=== PATIENT | female | born 1935 | race Caucasian/White ===

== ENCOUNTER 2016-10-09 08:57 | Outpatient (CLI) | payer MEDICARE | END 2016-10-09 08:58 | disposition home or self-care (01) | DX: Z79.899 Other long term (current) drug therapy (principal); M06.00 Rheumatoid arthritis without rheumatoid factor, unspecified site ==

== ENCOUNTER 2017-04-01 08:51 | Outpatient (CLI) | payer MEDICARE ==
[2017-04-01 13:32] LABS: BASOPHILS % (AUTO) 0.5 %; EOSINOPHILS # (AUTO) 0.2 10^3/uL (0.0-0.7); EOSINOPHILS % (AUTO) 2.4 %; HCT - HEMATOCRIT 38.3 % (37.0-47.0); HGB - HEMOGLOBIN 13.1 g/dL (12.0-16.0); LYMPHOCYTES # (AUTO) 1.7 10^3/uL (1.5-3.5); LYMPHOCYTES % (AUTO) 24.3 %; MEAN CORPUSCULAR HGB CONC 34.1 g/dL (32.0-36.0); MEAN CORPUSCULAR VOLUME 96.8 fL (81.0-99.0); MEAN PLATELET VOLUME 8.9 fL (7.9-10.8); MONOCYTES # (AUTO) 0.5 10^3/uL (0.0-1.0); NEUTROPHILS # (AUTO) 4.5 10^3/uL (1.5-6.6); NEUTROPHILS % (AUTO) 65.8 %; RED BLOOD COUNT 3.96 10^6/uL (4.20-5.40); RED CELL DISTRIBUTION WIDTH 12.8 % (12.0-15.0); UNCORRECTED WHITE BLOOD COUNT 6.9 x10^3/uL; WHITE BLOOD COUNT 6.9 x10^3/uL (4.8-10.8)
[2017-04-01 13:56] LABS: ALBUMIN/GLOBULIN RATIO 1.6 (1.0-2.2); BILIRUBIN,TOTAL 0.7 mg/dL (0.2-1.0); BUN - BLOOD UREA NITROGEN 18 mg/dL (6-20); CALCIUM 9.1 mg/dL (8.5-10.3); CARBON DIOXIDE - CO2 29 mmol/L (21-32); CHLORIDE 100 mmol/L (101-111); CHOL/HDL RATIO 3.7 (<4.4); CHOLESTEROL 167 mg/dL; CREATININE 1.1 mg/dL (0.4-1.0); GFR - MDRD 48 (>89); GLUCOSE 91 mg/dL (70-100); HDL CHOLESTEROL 45 mg/dL; LDL/HDL RATIO 2.1 (<4.4); POTASSIUM 3.9 mmol/L (3.5-5.0); SODIUM 138 mmol/L (135-145); TRIGLYCERIDES 129 mg/dL; VLDL CHOLESTEROL 26 mg/dL
== END 2017-04-01 08:52 | disposition home or self-care (01) ==
LOC: LAB.F 08:51
PROVIDERS: ATTEND Physician Assistant Medical
DX: M81.0 Age-related osteoporosis without current pathological fracture (principal); M06.09 Rheumatoid arthritis without rheumatoid factor, multiple sites; E78.2 Mixed hyperlipidemia; I10 Essential (primary) hypertension; Z79.899 Other long term (current) drug therapy
CPT/HCPCS: 36415; 80053; 80061; 82306; 84443; 85025; 85651; 86140

== ENCOUNTER 2017-04-08 07:10 | Outpatient (CLI) | payer MEDICARE ==
--- NOTE | 2017-04-09 16:10 | Mammography Report ---
DIGITAL SCREENING MAMMOGRAM: 04/08/2017 CLINICAL INDICATION: A 81-year-old with personal history of right breast cancer status post lumpecto my and chemoradiation. COMPARISON: 03/2016, 03/2015, 03/2014, 03/2013, 03/2012, 03/2011, 03/2010 TECHNIQUE: Routine CC and MLO projections were obtained of the breasts. FINDINGS: The breasts demonstrate scattered fibroglandular densities bilaterally. Postoperative and post-treatment changes in the right breast are stable. Coarse and punctate, typically benign calcif ications are present. No suspicious masses, clustered microcalcifications, or regions of architectur al distortion are identified. IMPRESSION: BENIGN FINDINGS. RECOMMENDATION: Routine annual screening unless otherwise clinically indicated. BIRADS CATEGORY 2 - BENIGN FINDINGS. STANDARD QUALIFYING STATEMENTS 1. This examination was reviewed with the aid of Computer-Aided Detection (CAD). 2. A negative or benign imaging report should not delay biopsy if clinically suspicious findings are present. Consider surgical consultation if warranted. More than 5% of cancers are not identified by i maging. 3. Dense breasts may obscure an underlying neoplasm. JOB #: [id number] EXT JOB #:[id number]
== END 2017-04-08 07:11 | disposition home or self-care (01) ==
LOC: DI 07:10
PROVIDERS: ATTEND Physician Assistant Medical
DX: Z12.31 Encounter for screening mammogram for malignant neoplasm of breast (principal); Z85.3 Personal history of malignant neoplasm of breast
CPT/HCPCS: 77067

== ENCOUNTER 2017-09-30 11:17 | Outpatient (CLI) | payer MEDICARE ==
[2017-09-30 11:33] LABS: BASOPHILS % (AUTO) 0.4 %; EOSINOPHILS # (AUTO) 0.1 10^3/uL (0.0-0.7); EOSINOPHILS % (AUTO) 0.8 %; HGB - HEMOGLOBIN 12.7 g/dL (12.0-16.0); LYMPHOCYTES # (AUTO) 1.4 10^3/uL (1.5-3.5); LYMPHOCYTES % (AUTO) 17.3 %; MEAN CORPUSCULAR HGB CONC 33.9 g/dL (32.0-36.0); MEAN CORPUSCULAR VOLUME 97.2 fL (81.0-99.0); MEAN PLATELET VOLUME 7.7 fL (7.9-10.8); MONOCYTES # (AUTO) 0.6 10^3/uL (0.0-1.0); MONOCYTES % (AUTO) 6.8 %; NEUTROPHILS # (AUTO) 6.1 10^3/uL (1.5-6.6); NEUTROPHILS % (AUTO) 74.7 %; PLT - PLATELET COUNT 181 10^3/uL (130-450); RED BLOOD COUNT 3.85 10^6/uL (4.20-5.40); RED CELL DISTRIBUTION WIDTH 13.8 % (12.0-15.0); WHITE BLOOD COUNT 8.2 x10^3/uL (4.8-10.8)
[2017-09-30 12:14] LABS: ALBUMIN 4.3 g/dL (3.2-5.5); ALBUMIN/GLOBULIN RATIO 1.4 (1.0-2.2); BILIRUBIN,TOTAL 0.8 mg/dL (0.2-1.0); CALCIUM 9.2 mg/dL (8.5-10.3); TOTAL PROTEIN 7.3 g/dL (6.7-8.2)
== END 2017-09-30 11:18 | disposition home or self-care (01) ==
LOC: LAB 11:17
PROVIDERS: ATTEND Physician Assistant Medical
DX: R06.00 Dyspnea, unspecified (principal); R53.83 Other fatigue
CPT/HCPCS: 36415; 80053; 85025; 85379

== ENCOUNTER 2017-09-30 11:34 | Outpatient (CLI) | payer MEDICARE ==
--- NOTE | 2017-09-30 12:03 | XRAY Report ---
TWO VIEW CHEST: 09/30/2017 CLINICAL INDICATION: Dyspnea, fatigue, History of pneumonia. COMPARISON: 11/15/2009. FINDINGS: Frontal and lateral views of the chest demonstrate a normal cardiac silhouette. The lungs are clear. Postoperative changes in the right breast and axilla are stable. No effusion or pneumothorax is present. IMPRESSION: NORMAL CHEST, UNCHANGED. TD: 09/30/2017 12:02
== END 2017-09-30 11:35 | disposition home or self-care (01) ==
LOC: DI 11:34
PROVIDERS: ATTEND Physician Assistant Medical
DX: R06.00 Dyspnea, unspecified (principal); R53.83 Other fatigue
CPT/HCPCS: 36415; 71046; 80053; 85025; 85379

== ENCOUNTER 2017-10-20 14:34 | Outpatient (CLI) | payer MEDICARE | END 2017-10-20 14:35 | disposition home or self-care (01) | LOC: RT 14:34 | PROVIDERS: ATTEND Physician Assistant Medical | DX: R06.00 Dyspnea, unspecified (principal); R53.83 Other fatigue | CPT/HCPCS: 93005; 94010 ==

== ENCOUNTER 2017-10-29 08:34 | Outpatient (CLI) | payer MEDICARE ==
--- NOTE | 2017-10-29 12:38 | CARDIAC PROCEDURE NOTE ---
DATE OF SERVICE: 10/29/2017 Physician: YUAN Brooks PRIMARY CARE PHYSICIAN: Sydnie Ray PA-C PROCEDURE: Myocardial perfusion treadmill. PROCEDURE SYMPTOMS: Fatigue, dyspnea on exertion. CARDIAC RISK FACTORS INCLUDE: Age, hypertension, hyperlipidemia. PREVIOUS CARDIAC PROCEDURES: ETT and MPS. CURRENT SYMPTOMATOLOGY: Okay. CLINICAL HISTORY: An 82-year-old sedentary female without known coronary artery disease. INITIAL RESTING VITAL SIGNS: BP 116/62, heart rate 85, height 66 inches, weight 166 pounds, BMI 26.75. PROCEDURE AND FINDINGS: Patient identity and date verified, consent signed. The patient performed treadmill exercise using a Marbin protocol, completing 5 minutes 26 seconds, and completing an estimated workload of 7.05 metabolic equivalents. At peak exercise, Cardiolite radioactive tracer was injected intravenously. Maximal blood pressure was 166/56 with a heart rate of 132 beats per minute or 94% of maximum predicted heart rate for age. The blood pressure response to exercise was within normal limits. The patient stopped because her legs were tiring and she was getting breathless. The resting ECG demonstrated normal sinus rhythm with no abnormality. Maximal ST segment depression was less than 0.5 mm and upsloping. There was a rare PAC. FINAL IMPRESSIONS 1. Good quality test. 2. Negative stress electrocardiogram for ischemia by electrocardiographic criteria. 3. Negative stress test clinically for angina. 4. No arrhythmias. 5. Outperformed predicted exercise time of 3 minutes 35 seconds to 4 minutes 50 seconds. TD: 10/29/2017 12:07
--- NOTE | 2017-10-30 08:22 | Nuclear Medicine Report ---
EXAM: SINGLE-ISOTOPE EXERCISE STRESS TEST. SINGLE-ISOTOPE AND ONE-DAY REST/STRESS MYOCARDIAL PERFUSION SCAN S WITH TOMOGRAPHIC IMAGING, QUANTITATIVE ANALYSIS, WALL MOTION ANALYSIS AND CALCULATION OF EJECTION F RACTION. EXAM DATE: 10/29/2017 04:40 PM. CLINICAL HISTORY: DYSPNEA, FATIGUE, HTN. COMPARISON: None available. TECHNIQUE: A rest myocardial perfusion scan was done with tomography after the intravenous administration of 9.3 mCi Tc-99m sestamibi. After an appropriate delay, a treadmill exercise stress was performed according to department protoco l. The patient exercised for 5 minutes and 26 seconds. The maximum heart rate was 132 bpm, which was 94% of the maximum predicted heart rate of 140 bpm. At approximately peak heart rate, 45.1 mCi of Tc- 99m sestamibi was injected for stress myocardial perfusion scan. Motion correction was applied when a ppropriate. Gated tomographic images were obtained for wall motion analysis and computation of left ventricular e jection fraction. FINDINGS: Images show a small, mild, fixed apical defect. No other convincing fixed or reversible per fusion defects. Wall motion analysis demonstrates no focal wall motion abnormality The left ventricular end-diastolic volume is 55 cc. The left ventricular end-systolic volume is 19 cc . The left ventricular ejection fraction is calculated to be 65%. IMPRESSION: 1. Small, mild, fixed apical perfusion defect. No other convincing fixed or reversible perfusion defe cts. 2. Normal left ventricular ejection fraction of 65%. 3. Normal segmental and global wall motion. 4. Normal left ventricular cavity size, no change with stress. [facility] Referring Provider Line: [phone] SITE ID: [id number]
[2017-11-02 17:10] VITALS: BP 110/65
== END 2017-10-29 08:35 | disposition home or self-care (01) ==
LOC: DI 08:34
PROVIDERS: ATTEND Physician Assistant Medical
DX: I99.8 Other disorder of circulatory system (principal); R06.00 Dyspnea, unspecified; R53.83 Other fatigue; E78.2 Mixed hyperlipidemia; I10 Essential (primary) hypertension
CPT/HCPCS: 78452; 93017; A9500; 93016; 93018

== ENCOUNTER 2018-03-17 13:23 | Outpatient (CLI) | payer MEDICARE | END 2018-03-17 13:24 | disposition short-term general hospital (02) | LOC: EMS 13:23 | PROVIDERS: ATTEND Surgery | DX: R07.9 Chest pain, unspecified (principal) | CPT/HCPCS: A0170; A0425; A0427 ==

== ENCOUNTER 2018-03-29 10:02 | Outpatient (CLI) | payer MEDICARE ==
[2018-03-29 17:52] LABS: BASOPHILS % (AUTO) 0.4 %; EOSINOPHILS # (AUTO) 0.1 10^3/uL (0.0-0.7); EOSINOPHILS % (AUTO) 1.8 %; HGB - HEMOGLOBIN 13.4 g/dL (12.0-16.0); LYMPHOCYTES # (AUTO) 1.9 10^3/uL (1.5-3.5); LYMPHOCYTES % (AUTO) 34.4 %; MEAN CORPUSCULAR HEMOGLOBIN 33.6 pg (27.0-31.0); MEAN CORPUSCULAR VOLUME 98.8 fL (81.0-99.0); MONOCYTES # (AUTO) 0.5 10^3/uL (0.0-1.0); MONOCYTES % (AUTO) 8.2 %; NEUTROPHILS # (AUTO) 3.1 10^3/uL (1.5-6.6); NEUTROPHILS % (AUTO) 55.2 %; PLT - PLATELET COUNT 167 10^3/uL (130-450); RED BLOOD COUNT 3.99 10^6/uL (4.20-5.40); WHITE BLOOD COUNT 5.7 x10^3/uL (4.8-10.8)
[2018-03-29 18:18] LABS: ALBUMIN 4.2 g/dL (3.2-5.5); ALBUMIN/GLOBULIN RATIO 1.7 (1.0-2.2); ALKALINE PHOSPHATASE 48 IU/L (42-121); ALT ALANINE AMINOTRANSFERASE 17 IU/L (10-60); AST ASPARTATE AMINOTRANSFERASE 22 IU/L (10-42); BUN - BLOOD UREA NITROGEN 21 mg/dL (6-20); CALCIUM 9.1 mg/dL (8.5-10.3); CARBON DIOXIDE - CO2 33 mmol/L (21-32); CHLORIDE 98 mmol/L (101-111); CHOL/HDL RATIO 3.9 (<4.4); CHOLESTEROL 171 mg/dL; GFR - MDRD 53 (>89); GLUCOSE 81 mg/dL (70-100); HDL CHOLESTEROL 44 mg/dL; LDL CHOLESTEROL,CALCULATED 98 mg/dL; LDL/HDL RATIO 2.2 (<4.4); SODIUM 139 mmol/L (135-145); TOTAL PROTEIN 6.7 g/dL (6.7-8.2); VLDL CHOLESTEROL 29 mg/dL
== END 2018-03-29 10:03 | disposition home or self-care (01) ==
LOC: LAB.F 10:02
PROVIDERS: ATTEND Physician Assistant Medical
DX: E78.2 Mixed hyperlipidemia (principal); I10 Essential (primary) hypertension; M81.0 Age-related osteoporosis without current pathological fracture; Z79.899 Other long term (current) drug therapy; R53.83 Other fatigue
CPT/HCPCS: 36415; 80053; 80061; 82306; 83721; 84443; 85025

== ENCOUNTER 2019-01-06 07:46 | Outpatient (CLI) | payer MEDICARE ==
--- NOTE | 2019-01-07 08:15 | Mammography Report ---
Reason: MAMMOGRAM YEARLY SCREENING Procedure Date: 01/06/2019 Accession Number: [id number] / [id number] Procedure: FINN - Screening Mammo w/Blas CPT Code: FULL RESULT: EXAM: Screening Mammo w/Blas DATE: 01/06/2019 8:57 AM CLINICAL HISTORY: Screening encounter. Personal history of right breast cancer status post lumpectomy in 2003 with chemoradiation. TECHNIQUE: (B) - Bilateral CC and MLO views were obtained. A right laterally exaggerated cc view is obtained. COMPARISON: 04/08/2017 through 03/23/2014. PARENCHYMAL PATTERN: (A) - The breast(s) demonstrate(s) scattered fibroglandular densities. FINDINGS: Posttreatment changes in the right breast are stable. There are bilateral typically benign coarse calcifications and typically benign vascular calcifications. There are no suspicious masses, calcifications, or areas of distortion. IMPRESSION: Benign findings. BI-RADS category 2. RECOMMENDATION: (ANNUAL) - Recommend routine annual screening mammography. BI-RADS CATEGORY: (2) - Benign Findings. STANDARD QUALIFYING STATEMENTS: 1. This examination was not reviewed with the aid of Computer-Aided Detection (CAD). 2. A negative or benign imaging report should not preclude biopsy if clinically suspicious findings are present. 3. Dense breasts may obscure an underlying neoplasm. 4. This examination was reviewed with the aid of 3D breast imaging (tomosynthesis).
== END 2019-01-06 07:47 | disposition home or self-care (01) ==
LOC: DI 07:46
PROVIDERS: ATTEND Nurse Practitioner
DX: Z12.31 Encounter for screening mammogram for malignant neoplasm of breast (principal); Z08 Encounter for follow-up examination after completed treatment for malignant neoplasm; Z85.3 Personal history of malignant neoplasm of breast
CPT/HCPCS: 77063; 77067

== ENCOUNTER 2019-01-06 07:48 | Outpatient (CLI) | payer MEDICARE ==
--- NOTE | 2019-01-07 08:55 | DEXA Report ---
Reason: MENOPAUSAL STATE,STEROID USE,SENIOR LIVING Procedure Date: 01/06/2019 Accession Number: [id number] / [id number] Procedure: DEX - Dexa Spine and/or Hip CPT Code: FULL RESULT: EXAM: Dexa Spine and/or Hip DATE: 01/06/2019 9:26 AM CLINICAL HISTORY: MENOPAUSAL STATE,STEROID USE,SENIOR LIVING TECHNIQUE: Dual energy x-ray absorptiometry (DXA) was performed on a [employer]ent[employer] System. Regions measured are the AP Spine, femoral neck, and if needed forearm. COMPARISON: 04/11/2016. In accordance with the International Society for Clinical Densitometry (ISCD) guidelines, data from previous exams may be reanalyzed using current recommendations and techniques. This is done to allow a more accurate basis for comparison with the current study. FINDINGS: The data for the lumbar spine is as follows: BMD (g/cm/cm) T-SCORE Z-SCORE REGION L1 0.929 -1.7 -0.1 L2 1.142 -0.5 1.1 L3 1.198 0.0 1.6 L4 1.150 -0.4 1.2 TOTAL 1.108 -0.6 1.0 NOTE: All evaluable vertebrae are used for classification The data for the hip is as follows: BMD (g/cm/cm) T-SCORE Z-SCORE REGION Neck 0.884 -1.1 0.9 TOTAL 0.882 -1.0 0.9 NOTE: The femoral neck or total proximal femur, whichever is lowest, is used for classification. DXA RESULTS SUMMARY: Spine SCAN DATE AGE BMD CHANGE VS CHANGE VS PREVIOUS PREVIOUS % [birth year]2019 [age] 1.108 -0.026 -2.3 04/11/2016 [age] 1.134 * Denotes significant change at the 95% confidence level. Denotes dissimilar scan types or analysis methods. DXA RESULTS SUMMARY: Hip SCAN DATE AGE BMD CHANGE VS CHANGE VS PREVIOUS PREVIOUS % [birth year]2019 [age] 0.882 -0.075* -7.8* 04/11/2016 [age] 0.957 * Denotes significant change at the 95% confidence level. Denotes dissimilar scan types or analysis methods. IMPRESSION: THE WHO CLASSIFICATION BASED ON THE INTERNATIONAL REFERENCE STANDARD IS OSTEOPENIA. THE FRACTURE RISK IS INCREASED. RECOMMENDATION: Patients with diagnosis of osteoporosis or osteopenia should have regular bone mineral density assessment. For those eligible for Medicare, routine testing is allowed once every 2 years. Testing frequency can be increased for patients who have rapidly progressing disease or for those who are receiving medical therapy to restore bone mass. COMMENT: World Health Organization (WHO) definitions for osteoporosis and osteopenia: NORMAL BMD: T-score at -1.0 or higher, fracture risk is low OSTEOPENIA BMD: T-score between -1.0 and -2.5, fracture risk is increased. OSTEOPOROSIS BMD: T-score at -2.5 or lower, fracture risk is high. National Osteoporosis Foundation recommends: 1. Obtain adequate dietary calcium (at least 1200 mg per day) and vitamin D (400-800 international units per day). 2. Participate, as appropriate, in regular weightbearing and muscle-strengthening exercise. 3. Avoid tobacco use and reduce alcohol and caffeine intake. 4. For more detailed information see the website at www.NOF.org.
== END 2019-01-06 07:49 | disposition home or self-care (01) ==
LOC: DI 07:48
PROVIDERS: ATTEND Nurse Practitioner
DX: M85.89 Other specified disorders of bone density and structure, multiple sites (principal); Z78.0 Asymptomatic menopausal state; Z79.52 Long term (current) use of systemic steroids
CPT/HCPCS: 77080

== ENCOUNTER 2019-11-16 18:31 | Outpatient (CLI) | payer MEDICARE | END 2019-11-16 23:59 | disposition critical access hospital (66) | LOC: EMS 18:31 | PROVIDERS: ATTEND Surgery | DX: R00.0 Tachycardia, unspecified (principal); R07.9 Chest pain, unspecified; R42 Dizziness and giddiness; R61 Generalized hyperhidrosis | CPT/HCPCS: A0425; A0429 ==

== ENCOUNTER 2020-03-01 07:53 | Outpatient (CLI) | payer MEDICARE ==
[2020-03-01 15:26] LABS: BASOPHILS % (AUTO) 0.4 %; EOSINOPHILS % (AUTO) 2.6 %; HGB - HEMOGLOBIN 12.7 g/dL (12.0-16.0); MEAN CORPUSCULAR HEMOGLOBIN 35.2 pg (27.0-31.0); MEAN CORPUSCULAR HGB CONC 33.1 g/dL (32.0-36.0); MEAN CORPUSCULAR VOLUME 106.4 fL (81.0-99.0); MEAN PLATELET VOLUME 10.4 fL (7.9-10.8); MONOCYTES % (AUTO) 7.3 %; NEUTROPHILS % (AUTO) 63.2 %; PLT - PLATELET COUNT 184 10^3/uL (130-450); RED BLOOD COUNT 3.61 10^6/uL (4.20-5.40); RED CELL DISTRIBUTION WIDTH 15.2 % (12.0-15.0); WHITE BLOOD COUNT 7.7 x10^3/uL (4.8-10.8)
[2020-03-01 15:57] LABS: ALBUMIN/GLOBULIN RATIO 1.5 (1.0-2.2); ALKALINE PHOSPHATASE 42 IU/L (42-121); ALT ALANINE AMINOTRANSFERASE 19 IU/L (10-60); AST ASPARTATE AMINOTRANSFERASE 22 IU/L (10-42); BILIRUBIN,TOTAL 0.6 mg/dL (0.2-1.0); BUN - BLOOD UREA NITROGEN 17 mg/dL (6-20); CALCIUM 9.4 mg/dL (8.5-10.3); CARBON DIOXIDE - CO2 32 mmol/L (21-32); CHLORIDE 99 mmol/L (101-111); CHOL/HDL RATIO 4.1 (<4.4); CHOLESTEROL 185 mg/dL; GLUCOSE 85 mg/dL (70-100); HDL CHOLESTEROL 45 mg/dL; LDL CHOLESTEROL,CALCULATED 112 mg/dL; LDL/HDL RATIO 2.5 (<4.4); SODIUM 139 mmol/L (135-145); TOTAL PROTEIN 6.7 g/dL (6.7-8.2); VLDL CHOLESTEROL 28 mg/dL
[2020-03-01 16:02] LABS: ABNORMAL LYMPHS % (MANUAL) 0 %; BAND NEUTROPHILS % (MANUAL) 0 %; THYROID STIMULATING HORMONE 3.11 uIU/mL (0.34-5.60)
[2020-03-01 16:35] LABS: DIFFERENTIAL COMMENT MANUAL DIFFERENTIAL; LYMPHOCYTES # (MANUAL) 1.9 10^3/uL (1.5-3.5); LYMPHOCYTES % (MANUAL) 25 %; MONOCYTES # (MANUAL) 0.5 10^3/uL (0.0-1.0); PLATELET ESTIMATE, MANUAL NORMAL (130-450,000) (NORMAL); PLATELET MORPHOLOGY NORMAL APPEARANCE (NORMAL)
== END 2020-03-01 07:54 | disposition home or self-care (01) ==
LOC: LAB.S 07:53
PROVIDERS: ATTEND Family Medicine
DX: M06.9 Rheumatoid arthritis, unspecified (principal); E78.5 Hyperlipidemia, unspecified; E83.52 Hypercalcemia; M62.81 Muscle weakness (generalized)
CPT/HCPCS: 36415; 80053; 80061; 83721; 83970; 84443; 85025

== ENCOUNTER 2020-04-25 09:21 | Outpatient (CLI) | payer MEDICARE | END 2020-04-25 09:22 | disposition critical access hospital (66) | LOC: EMS 09:21 | PROVIDERS: ATTEND Surgery | DX: R53.83 Other fatigue (principal); R06.09 Other forms of dyspnea; R42 Dizziness and giddiness | CPT/HCPCS: A0425; A0427 ==

== ENCOUNTER 2020-04-25 09:57 | Emergency (ER) | payer MEDICARE ==
--- NOTE | 2020-04-25 10:05 | ED Physician Documentation ---
History of Present Illness - Stated complaint Stated Complaint: SOA - History obtained from History obtained from: Patient - Additonal information Additional information: This is a very healthy 85-year-old woman who presents with shortness of breath. She says has been present for the last 2 to 3 weeks or so but particularly bad over the last few days. She mostly notes it on exertion and with position changes especially when she goes upright. Its not associated with chest pain, cough, pedal edema, calf pain. She has a history of SVT status post ablation, no other heart issues. No history of DVT or PE. She is on methotrexate weekly for rheumatoid arthritis. She saw her doctor about a week ago for it, and it sounds like a event monitor or Holter monitor was placed without pertinent positive findings at this juncture but I am unable to confirm that. She had a stress test 4 years ago per the chart that was negative. Review of Systems Ten Systems: 10 systems reviewed and negative Constitutional: reports: Fatigue Cardiac: denies: Chest pain / pressure, Pedal edema, Calf pain Respiratory: reports: Dyspnea. denies: Cough GI: denies: Abdominal Pain PD PAST MEDICAL HISTORY - Past Medical History Cardiovascular: Hypertension, High cholesterol - Past Surgical History /MACHINE CUTTER: Other HEENT: Other - Present Medications Home Medications: Ambulatory Orders Medication Instructions Recorded Confirmed Calcium Carbonate [Caltrate 600] 1,200 mg PO DAILY 02/28/13 02/27/16 Lovastatin 10 mg PO DAILY 02/28/13 02/27/16 Multivit-Min/FA/Lycopene/Lut 1 each PO DAILY 02/28/13 02/27/16 [Centrum Silver Tablet] Omeprazole [PriLOSEC] 20 mg PO DAILY PRN 02/28/13 02/27/16 predniSONE [Deltasone] 3 mg PO DAILY 02/28/13 02/27/16 Hchloroquine 400 mg ORAL DAILY 03/01/14 02/27/16 Doxycycline Hyclate 100 mg PO BID #14 tablet. 04/25/20 predniSONE [Deltasone] 20 mg PO [id number] #21 tab 04/25/20 - Allergies Allergies/Adverse Reactions: Allergies Allergy/AdvReac Type Severity Reaction Status Date / Time Penicillins Allergy Rash Verified 04/25/20 10:10 Sulfa (Sulfonamide Allergy Rash Verified 04/25/20 10:10 Antibiotics) - Social History Does the pt smoke?: No - Family History Family history: reports: Non contributory PD ED PE NORMAL - Vitals Vital signs reviewed: Yes - General General: Alert and oriented X 3, No acute distress - HEENT HEENT: PERRL, EOMI - Neck Neck: Supple, no meningeal sign, No bony TTP - Cardiac Cardiac: No murmur, Other (Slightly tachycardic but regular without murmur) - Respiratory Respiratory: No respiratory distress, Other (Focal right middle lobe wheeze, nonlabored) - Abdomen Abdomen: Soft, Non tender - Back Back: No CVA TTP, No spinal TTP - Derm Derm: Normal color, Warm and dry - Extremities Extremities: No edema, No calf tenderness / cord - Neuro Neuro: Alert and oriented X 3, Normal speech Results - Vitals Vitals: Vital Signs - 24 hr 04/25/20 04/25/20 04/25/20 10:05 12:12 12:50 Temperature 36.0 C L Heart Rate 107 H 100 98 Respiratory 20 14 Rate Blood Pressure 136/87 H 126/61 O2 Saturation 97 100 99 04/25/20 13:00 Temperature Heart Rate 89 Respiratory 14 Rate Blood Pressure 126/61 O2 Saturation 100 Oxygen O2 Source Room air - EKG (time done) 1001 Rate: Rate (enter#) (98) Rhythm: NSR, LAE [place]: Normal Intervals: Normal MT QRS: LVH Ischemia: No: ST elevation c/w ischemia, ST depression Computer interpretation: Agree with computer - Labs Labs: Laboratory Tests 04/25/20 04/25/20 04/25/20 10:16 10:16 10:16 WBC 8.3 RBC 3.05 L Hgb 11.2 L Hct 33.3 L MCV 109.2 H MCH 36.7 H MCHC 33.6 RDW 15.4 H Plt Count 255 MPV 9.6 Neut # (Auto) 6.2 Lymph # (Auto) 0.8 L [place] # (Auto) 0.9 Eos # (Auto) 0.1 Baso # (Auto) 0.0 Absolute Nucleated RBC 0.00 Nucleated RBC % 0.0 D-Dimer 255.3 H Sodium 138 Potassium 3.6 Chloride 99 L Carbon Dioxide 27 Anion Gap 12.0 BUN 14 Creatinine 1.1 H Estimated GFR (MDRD) 47 L Glucose 105 H Calcium 8.9 Total Bilirubin 0.8 AST 75 H ALT 67 H Alkaline Phosphatase 46 Troponin I High Sens B-Natriuretic Peptide Total Protein 6.5 L Albumin 3.4 Globulin 3.1 Albumin/Globulin Ratio 1.1 04/25/20 04/25/20 10:16 10:16 WBC RBC Hgb Hct MCV MCH MCHC RDW Plt Count MPV Neut # (Auto) Lymph # (Auto) Daggett # (Auto) Eos # (Auto) Baso # (Auto) Absolute Nucleated RBC Nucleated RBC % D-Dimer Sodium Potassium Chloride Carbon Dioxide Anion Gap BUN Creatinine Estimated GFR (MDRD) Glucose Calcium Total Bilirubin AST ALT Alkaline Phosphatase Troponin I High Sens 7.6 B-Natriuretic Peptide 35 Total Protein Albumin Globulin Albumin/Globulin Ratio - Rads (name of study) 1v CXR Radiology: EMP read contemporaneously (NAD) PD MEDICAL DECISION MAKING - ED course ED course: 85-year-old woman presents with shortness of breath for several weeks, acutely worse over the last few days. It is worse on exertion and when she changes position. She was orthostatic for EMS prior to arrival. Initial work-up demonstrates no acute coronary syndrome or evidence of heart failure. Clear lungs on chest x-ray and exam. D-dimer was modestly elevated. She is persistently borderline hypoxic on room air, right around 90%. She was given some IV fluids and a CT of the chest was ordered. CT chest demonstrated a nonspecific pneumonitis, no PE. We walked her in the hallway on room air and she had no desaturations, looks well. She is discharged on antibiotics and steroids. Covid test is sent and pending. Departure - Departure Disposition: 01 Home, Self Care Clinical Impression: Bronchitis, Pneumonitis Condition: Good Record reviewed to determine appropriate education?: Yes Instructions: ED Upper Resp Infec Abx Tx Prescriptions: predniSONE [Deltasone] 20 mg PO [id number] #21 tab Doxycycline Hyclate 100 mg PO BID #14 tablet. Comments: You were seen today for shortness of breath, may be some dehydration. You felt better after IV fluids. There is no evidence of a heart issue. Your liver enzymes are mildly elevated, possibly due to the methotrexate, your AST is 75, ALT is 67. Your bilirubin is normal at 0.8. We did a CAT scan because your D- dimer was mildly positive and this showed a nonspecific pneumonitis. We are trying some antibiotics and steroids for this. Also checking a Covid test. If not better in short order, talk with your doctor at [facility] about potentially a pulmonology referral. Make sure to follow-up with your primary care physician regardless. You have a Covid test pending. You need to self quarantine until the result is done and negative. Do not leave your house. Do not get near anybody. The results should be done in 48 to 72 hours. We will call with a positive result, the fastest way to get a negative result for confirmation though is to go to the hospital website at [email or web address], click on the my [employer] tab and sign up for the patient portal. Discharge Date/Time: 04/25/20 13:00
--- NOTE | 2020-04-25 10:24 | XRAY Report ---
PROCEDURE: Chest 1 View X-Ray INDICATIONS: soa TECHNIQUE: 2 AP views of the chest was acquired. COMPARISON: Chest radiographs 09/30/2017 FINDINGS: Surgical changes and devices: Surgical clips are seen overlying the right breast and right axilla.. Lungs and pleura: No pleural effusions or pneumothorax. Lungs are clear. Mediastinum: Mediastinal contours appear normal. Heart size is normal. Mild atherosclerotic calcif ications are seen in the aorta. Bones and chest wall: No suspicious bony lesions. Overlying soft tissues appear unremarkable. IMPRESSION: No acute cardiopulmonary abnormality. Reviewed by: Rob Mahoney MD on 04/25/2020 10:23 AM [facility] Approved by: Rob Mahoney MD on 04/25/2020 10:23 AM PST Station ID: [id number]
[2020-04-25 10:30] LABS: BASOPHILS % (AUTO) 0.5 %; EOSINOPHILS # (AUTO) 0.1 10^3/uL (0.0-0.7); EOSINOPHILS % (AUTO) 1.5 %; HGB - HEMOGLOBIN 11.2 g/dL (12.0-16.0); LYMPHOCYTES # (AUTO) 0.8 10^3/uL (1.5-3.5); LYMPHOCYTES % (AUTO) 10.1 %; MEAN CORPUSCULAR HEMOGLOBIN 36.7 pg (27.0-31.0); MEAN CORPUSCULAR HGB CONC 33.6 g/dL (32.0-36.0); MEAN CORPUSCULAR VOLUME 109.2 fL (81.0-99.0); MEAN PLATELET VOLUME 9.6 fL (7.9-10.8); MONOCYTES # (AUTO) 0.9 10^3/uL (0.0-1.0); MONOCYTES % (AUTO) 10.8 %; NEUTROPHILS # (AUTO) 6.2 10^3/uL (1.5-6.6); NEUTROPHILS % (AUTO) 75.4 %; PLT - PLATELET COUNT 255 10^3/uL (130-450); RED BLOOD COUNT 3.05 10^6/uL (4.20-5.40); RED CELL DISTRIBUTION WIDTH 15.4 % (12.0-15.0); WHITE BLOOD COUNT 8.3 x10^3/uL (4.8-10.8)
[2020-04-25 10:34] LABS: ALBUMIN 3.4 g/dL (3.2-5.5); ALBUMIN/GLOBULIN RATIO 1.1 (1.0-2.2); BILIRUBIN,TOTAL 0.8 mg/dL (0.2-1.0); CALCIUM 8.9 mg/dL (8.5-10.3); CREATININE 1.1 mg/dL (0.4-1.0); TOTAL PROTEIN 6.5 g/dL (6.7-8.2)
[2020-04-25] MEDS ORDERED: IOVERSOL 320 100 ML VIAL IVP ONE ×2 (11:26→12:15)
[2020-04-25] MEDS ORDERED: SODIUM CHLORIDE 0.9% 1,000 ML IV STA (11:40)
--- NOTE | 2020-04-25 11:54 | CT Report ---
PROCEDURE: ANGIO CHEST W/WO INDICATIONS: dyspnea, pe protocol CONTRAST: IV CONTRAST: Optiray 320 ml: 80 PO CONTRAST: *NO PO CONTRAST TECHNIQUE: After the administration of intravenous contrast, 2 mm thick sections acquired from the pulmonary api dean to the posterior costophrenic angles. 3-dimensional maximum intensity projection (MIP) coronal a nd sagittal reformats were then acquired through the thorax. For radiation dose reduction, the follow ing was used: automated exposure control, adjustment of mA and/or kV according to patient size. COMPARISON: Chest radiograph from earlier same and 09/30/2017. FINDINGS: Image quality: Excellent. Pulmonary arteries: Pulmonary arteries are normal in size, and demonstrate no intraluminal filling d efects to suggest central pulmonary embolism. Lungs and pleura: There are diffusely scattered patchy areas of groundglass opacities involving the b ilateral hemithoraces which appear more pronounced on the right. No focal consolidations. No septal n odularity. No pleural effusions or pneumothorax. Central and peripheral airways are patent. Mediastinum: Heart size is normal, without pericardial effusion. No mediastinal or hilar adenopathy . Thoracic aorta is normal in caliber and enhancement. Esophagus is normal in caliber, with small h iatal hernia. Atherosclerotic calcifications of the coronary arteries and thoracic aorta. Bones and chest wall: No suspicious bony lesions. Ribs and thoracic spine appear intact throughout. The thyroid is normal. No axillary or supraclavicular adenopathy. Postsurgical changes of the righ t breast and right axilla. No acute compression fractures of the imaged spine. Multilevel spondylosis . Abdomen: Visualized upper abdominal solid organs appear normal in the early arterial phase of enhanc ement. IMPRESSION: 1. No acute pulmonary emboli. 2. Diffuse, patchy areas of groundglass opacities of the bilateral hemithoraces. Findings are nonspec ific and may represent an infectious/inflammatory process versus hypersensitivity pneumonitis, pulmon hugo hemorrhage, or pulmonary edema. 3. Small hiatal hernia. Reviewed by: Toney Lester MD on 04/25/2020 10:53 AM [facility] Approved by: Toney Lester MD on 04/25/2020 10:53 AM [facility] Station ID: [id number]
[2020-04-25 13:02] VITALS: BP 126/61
== END 2020-04-25 13:00 | disposition home or self-care (01) ==
LOC: EDUNIT# → ED 09:57
DX: J18.9 Pneumonia, unspecified organism (principal); J40 Bronchitis, not specified as acute or chronic; Z20.828 Contact with and (suspected) exposure to other viral communicable diseases; R79.89 Other specified abnormal findings of blood chemistry; R00.0 Tachycardia, unspecified; I10 Essential (primary) hypertension
CPT/HCPCS: 36415; 71045; 71275; 80053; 83880; 84484; 85025; 85379; 93005; 99284; 99285; Q9967; U0004

== ENCOUNTER 2020-07-03 10:53 | Outpatient (CLI) | payer MEDICARE ==
--- NOTE | 2020-07-03 12:08 | XRAY Report ---
PROCEDURE: Chest 2 View X-Ray INDICATIONS: SHORTNESS OF BREATH TECHNIQUE: 2 view(s) of the chest. COMPARISON: None. FINDINGS: Surgical changes and devices: Right chest wall surgical clips. Lungs and pleura: No focal consolidation. Patchy bilateral airspace opacities are present, grossly si milar to 04/25/2020 examination. No pleural effusion or pneumothorax. Mediastinum: Mediastinal contours are normal. Heart size is normal. Bones and chest wall: No suspicious bony abnormalities. Soft tissues appear unremarkable. IMPRESSION: Nonspecific patchy bilateral airspace opacities. These may represent chronic findings of either an acute or chronic infectious/inflammatory process such as hypersensitivity pneumonitis). Pu lmonary edema would appear similar. Reviewed by: Devon Del Cid MD on 07/03/2020 12:07 PM [facility] Approved by: Devon Del Cid MD on 07/03/2020 12:07 PM [facility] Station ID: [id number]
== END 2020-07-03 10:54 | disposition home or self-care (01) ==
LOC: DI.S 10:53
PROVIDERS: ATTEND Internal Medicine Rheumatology
DX: R06.02 Shortness of breath (principal); R05 Cough

== ENCOUNTER 2020-07-03 14:46 | Outpatient (CLI) | payer MEDICARE ==
--- NOTE | 2020-07-04 12:59 | Mammography Report ---
BILATERAL DIGITAL SCREENING MAMMOGRAM 3D/2D: 07/03/2020 CLINICAL: Routine screening. Personal history of right breast cancer. Comparison is made to exams dated: 01/06/2019 mammogram, 04/08/2017 mammogram, and 04/11/2016 mammogr am - [facility]. There are scattered fibroglandular elements in both breasts. There are benign post operative findings in the right breast. No significant masses, calcifications, or other findings are seen in either breast. There has been no significant interval change. IMPRESSION: BENIGN There is no mammographic evidence of malignancy. A 1 year screening mammogram is recommended. This exam was interpreted at Station ID: [id number]. NOTE: For mammograms, a report in lay terms will be sent to the patient. Approximately 15% of breast malignancies will not be visualized mammographically. In the management of a palpable breast mass, a negative mammogram must not discourage biopsy of a clinically suspicious lesion. Electronically Signed By: Rob de souza/alex:07/03/2020 15:50:42 ACR BI-RADS Category 2: Benign Finding(s) 3342F PARENCHYMAL PATTERN: (A) - The breast(s) demonstrate(s) scattered fibroglandular densities. BI-RADS CATEGORY: (2) - 2 RECOMMENDATION: (ANNUAL) - Recommend routine annual screening mammography. [id number] 1 year screening LATERALITY: (B)
== END 2020-07-03 14:47 | disposition home or self-care (01) ==
LOC: DI 14:46
PROVIDERS: ATTEND Family Medicine
DX: Z12.31 Encounter for screening mammogram for malignant neoplasm of breast (principal); Z08 Encounter for follow-up examination after completed treatment for malignant neoplasm; Z85.3 Personal history of malignant neoplasm of breast
CPT/HCPCS: 77067

== ENCOUNTER 2023-08-13 11:08 | Outpatient (CLI) | payer MEDICARE ==
--- NOTE | 2023-08-13 14:06 | XRAY Report ---
PROCEDURE: Chest 2V INDICATIONS: DYSPNEA ON EXERTION TECHNIQUE: 2 views of the chest were acquired. COMPARISON: Radiograph 07/03/2020. FINDINGS: Surgical changes and devices: Right axillary and breast surgical clips.. Lungs and pleura: No pleural effusions or pneumothorax. Lungs are clear. Mediastinum: Mediastinal contours appear normal. Heart size is normal. Bones and chest wall: No suspicious bony lesions. Overlying soft tissues appear unremarkable. IMPRESSION: No acute cardiopulmonary process. Reviewed by: Megan Lujan MD on 08/13/2023 2:04 PM PST Approved by: Megan Lujan MD on 08/13/2023 2:04 PM PST Station ID: [id number]
== END 2023-08-13 11:09 | disposition home or self-care (01) ==
LOC: DI 11:08
PROVIDERS: ATTEND Internal Medicine Cardiovascular Disease
DX: R06.09 Other forms of dyspnea (principal)

== ENCOUNTER 2023-09-23 14:09 | Outpatient (CLI) | payer MEDICARE ==
[2023-09-23 19:50] LABS: BASOPHILS # (AUTO) 0.1 10^3/uL (0.0-0.1); BASOPHILS % (AUTO) 0.8 %; EOSINOPHILS # (AUTO) 0.2 10^3/uL (0.0-0.7); EOSINOPHILS % (AUTO) 2.6 %; HCT - HEMATOCRIT 40.9 % (37.0-47.0); LYMPHOCYTES # (AUTO) 2.3 10^3/uL (1.5-3.5); LYMPHOCYTES % (AUTO) 30.2 %; MEAN CORPUSCULAR HEMOGLOBIN 32.5 pg (27.0-31.0); MEAN CORPUSCULAR HGB CONC 31.8 g/dL (32.0-36.0); MEAN CORPUSCULAR VOLUME 102.3 fL (81.0-99.0); MEAN PLATELET VOLUME 10.7 fL (7.9-10.8); MONOCYTES # (AUTO) 0.6 10^3/uL (0.0-1.0); MONOCYTES % (AUTO) 7.5 %; NEUTROPHILS # (AUTO) 4.6 10^3/uL (1.5-6.6); NEUTROPHILS % (AUTO) 58.5 %; PLT - PLATELET COUNT 195 10^3/uL (130-450); RED CELL DISTRIBUTION WIDTH 12.7 % (12.0-15.0); WHITE BLOOD COUNT 7.8 x10^3/uL (4.8-10.8)
[2023-09-23 20:09] LABS: PT - PROTHROMBIN TIME 11.2 secs (9.9-12.6)
[2023-09-23 20:13] LABS: CALCIUM 10.4 mg/dL (8.5-10.3); CREATININE 1.1 mg/dL (0.6-1.3); POTASSIUM 3.8 mmol/L (3.5-4.5)
== END 2023-09-23 14:10 | disposition home or self-care (01) ==
LOC: LAB.S 14:09
PROVIDERS: ATTEND Internal Medicine Cardiovascular Disease
DX: R06.02 Shortness of breath (principal)
CPT/HCPCS: 36415; 80048; 85025; 85610